=== PATIENT | female | born 1950 ===

== ENCOUNTER → 2016-06-14 07:13 | Day surgery (SDC) | payer MEDICARE ==
[~2016-06-14 07:13] MED LIST: Acetaminophen TAB* 325 MG PO PRN; Buffered Lidocaine 1% SYR 3ML* 3 ML/SYR SYRINGE INTRADERM ONE; Midazolam* 1 MG/ML 2 ML VIAL (2 MG) ONE
[2016-06-14 09:30] VITALS: BP 132/54
--- NOTE | 2016-06-14 21:48 | OP ---
DATE OF OPERATION: 06/14/16 - [facility] DATE OF : 48 SURGEON: Rock Ambrocio MD ANESTHESIOLOGIST: Yancy Mae MD ANESTHESIA: Monitored anesthesia care. 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 OPERATIVE PROCEDURE: Cataract extraction of the left eye. IMPLANTS: SN60WF 14.5 diopter to the left eye. COMPLICATIONS: None. DESCRIPTION OF PROCEDURE: The patient was given phenylephrine 2.5% and cyclopentolate 1% eyedrops to the operative eye in the preoperative area. The patient was brought to the operating room, where a time-out was taken to identify the correct patient, site, and side of surgery. The patient's left eye was prepped and draped in the usual sterile fashion with 5% Betadine. A second time-out was taken to verify the correct patient site and side of surgery and correct lens selection. A lid speculum was placed to the left eye. A 1-mm paracentesis blade was used to make a clear corneal incision in the inferotemporal position. Preservative-free 1% lidocaine was injected into the anterior chamber. DuoVisc was then injected into the anterior chamber. A 2.75- mm keratome blade was used to make a triplanar incision at the superotemporal position. A cystotome was used to initiate a capsulorrhexis, which was completed with Utrata forceps in a continuous and curvilinear manner. Hydrodissection of the lens was then performed with BSS on a cannula. The lens could be spun in the capsular bag. The phacoemulsification handpiece was then used with a [id number]-[id number]-wvnkgbm technique to remove the nucleus in its entirety with 14.5 CDE. The I/A handpiece was then used to remove the residual cortical lens material. DuoVisc was then injected to inflate the capsular bag. The planned SN60WF 14.5 diopter lens was then injected into the capsular bag. The residual DuoVisc was then removed from the eye with the I/A handpiece. The corneal incisions were then hydrated and no leaks occurred at physiologic pressure around 20 mmHg per palpation. The lid speculum was then removed and drapes removed. Maxitrol ointment was then placed to the surface of the operative eye. An adhesive patch and shield were then placed on the operative eye. The patient was taken to the postoperative area in stable condition. [id number]/[facility] #: [id number] YAMIL
== END | disposition home or self-care (01) ==
LOC: OREAST 07:13
PROVIDERS: ATTEND Student in an Organized Health Care Education/Training Program
DX: H25.12 Age-related nuclear cataract, left eye (principal); H43.822 Vitreomacular adhesion, left eye; H35.373 Puckering of macula, bilateral; I10 Essential (primary) hypertension
CPT/HCPCS: J2250; V2632

== ENCOUNTER → 2016-06-21 06:24 | Day surgery (SDC) | payer MEDICARE ==
[~2016-06-21 06:24] MED LIST changes: +Cyclopentolate 1% OPTH.SOL* 2 ML BTL ONE; +Flurbiprofen 0.03% OPTH.SOL* 2.5 ML BTL ONE; +Lidocaine 1% MPF* 2 ML VIAL ONE; +Neomycin/Polymy/Dex OPHTH.OIN* 3.5 GM ONE; +Phenylephrine 2.5% OPTH.SOL* 2 ML BTL ONE; +Povidone Iodine 5% OPTH* 30 ML BTL ONE; +Tetracaine 0.5% OPTH.SOL 4 ML* 1 DROP BTL ONE; +acetaZOLAMIDE TAB* 250 MG ONE; +fentaNYL* 50 MCG/ML 2 ML VIAL (100 MCG VIAL) ONE
[2016-06-21 08:03] VITALS: BP 127/76
--- NOTE | 2016-06-21 15:37 | OP ---
DATE OF OPERATION: 06/21/16 - [facility] DATE OF : 48 SURGEON: Rock Ambrocio MD. ANESTHESIOLOGIST: Elmer Recinos MD ANESTHESIA: Monitored anesthesia care. PRE-OP DIAGNOSIS: Cataract of the right eye. POST-OP DIAGNOSIS: Cataract of the right eye. OPERATIVE PROCEDURE: Cataract extraction of the right eye. IMPLANTS: SN60WF 13.0 diopter lens to the right eye. COMPLICATIONS: None. DESCRIPTION OF PROCEDURE: The patient was given phenylephrine 2.5% and cyclopentolate 1% eyedrops in the preoperative area to the operative eye. The patient was brought to the operating room, where a time-out was taken to identify the correct patient, site, and side of the surgery. The patient's right eye was prepped and draped in the usual sterile fashion with 5% Betadine. A second time- out was taken to verify the correct patient, site, and side of surgery and correct lens selection. A lid speculum was placed to the right eye. A 1-mm paracentesis blade was used to make a clear corneal incision in the superotemporal position. Preservative-free 1% lidocaine was injected into the anterior chamber. DuoVisc was then injected into the anterior chamber. A 2.75-mm keratome blade was used to make a triplanar incision at the inferotemporal position. A cystotome was used to initiate a capsulorrhexis, which was completed with Utrata forceps in a continuous and curvilinear manner. Hydrodissection of the lens was then performed with BSS on a cannula. The lens could be spun in the capsular bag. The phacoemulsification handpiece was then used with a pqmcwi-zoi-kndpayv technique to remove the nucleus in its entirety with 14.85 CDE. The I/A handpiece was then used to remove the residual cortical lens material. DuoVisc was then injected to inflate the capsular bag. The planned SN60WF 13.0 diopter lens was then injected into the capsular bag. The residual DuoVisc was then removed from the eye with the I/A handpiece. The corneal incisions were then hydrated and no leaks occurred at physiologic pressure around 20 mmHg per palpation. The lid speculum was then removed and drapes removed. Maxitrol ointment was then placed to the surface of the operative eye. An adhesive patch and shield were then placed on the operative eye. The patient was taken to the postoperative area in stable condition. [id number]/[facility] #: [id number] YAMIL
== END | disposition home or self-care (01) ==
LOC: OREAST 06:24
PROVIDERS: ATTEND Student in an Organized Health Care Education/Training Program
DX: H25.11 Age-related nuclear cataract, right eye (principal); Z87.891 Personal history of nicotine dependence; I10 Essential (primary) hypertension
CPT/HCPCS: A9270-GY; J2250; J3010; V2632